=== PATIENT | female | born 1990 | race African-American/Black ===

== ENCOUNTER 2017-09-13 13:41 | Emergency (ER) | payer MEDICAID ==
[~2017-09-13] VITALS: Ht 165.1 cm; Wt 72.6 kg
[2017-09-13 14:30] VITALS: BP 106/69
[2017-09-13 14:36] LABS: APPEARANCE,URINE CLEAR; KETONES,URINE NEGATIVE (NEGATIVE); LEUKOCYTE ESTERASE ,URINE 1+ (NEGATIVE); NITRITE,URINE NEGATIVE (NEGATIVE); PH,URINE 7 (4.5-8.0); PROTEIN,URINE NEGATIVE (NEGATIVE); UROBILINOGEN,URINE NORMAL MG/DL (0.0-1.0)
[2017-09-13 14:38] LABS: BASOPHILS % (AUTO) 0.4 % (0.0-2.0); EOSINOPHILS % (AUTO) 4.1 % (0.0-3.0); LYMPHOCYTES % (AUTO) 25.4 % (20.0-45.0); MEAN CORPUSCULAR HEMOGLOBIN 29.8 PG (27.0-31.0); MEAN CORPUSCULAR HGB CONC 34.3 G/DL (32.0-36.0); MEAN CORPUSCULAR VOLUME 87 FL (80-99); MONOCYTES % (AUTO) 6.1 % (1.0-10.0); PLATELET COUNT 255 K/UL (150-450); RED BLOOD COUNT 4.02 M/UL (4.20-5.40); RED CELL DISTRIBUTION WIDTH 12.1 % (11.6-14.8); WHITE BLOOD COUNT 9.5 K/UL (4.8-10.8)
[2017-09-13 14:48] LABS: RBC,URINE 40-60 /HPF (0 - 2)
[2017-09-13 14:49] LABS: BACTERIA,URINE FEW /HPF; SQUAMOUS EPITHELIAL CELL,UR FEW /LPF (NONE/OCC)
[2017-09-13 15:12] LABS: ANION GAP 8 mmol/L (5-15); CALCIUM 9.2 MG/DL (8.5-10.1); CARBON DIOXIDE 26 MMOL/L (21-32); CHLORIDE 102 MMOL/L (98-107); CREATININE 0.6 MG/DL (0.55-1.30); GLOMERULAR FILTRATION RATE > 60 mL/min (>60); POTASSIUM 3.6 MMOL/L (3.5-5.1); SODIUM 136 MMOL/L (136-145)
[2017-09-13 15:17] LABS: ALANINE AMINOTRANSFERASE 85 U/L (12-78); ALBUMIN/GLOBULIN RATIO 0.8 (1.0-2.7); ASPARTATE AMINO TRANSFERASE 39 U/L (15-37); LIPASE 179 U/L (73-393); TOTAL PROTEIN 7.7 G/DL (6.4-8.2)
--- NOTE | 2017-09-13 15:50 | Emergency Room Report ---
History of Present Illness General Chief Complaint: Complications Source: Patient Present Illness HPI Patient presents with vaginal bleeding and suprapubic crampiness. She had some vaginal bleeding 1 month ago and had an ultrasound with her OB. There was a heart bead. The MD stated at that time she was 7 weeks. She states she is not passing clots. She has not had to use a pad. The blood was somewhat watery. She does not know her blood type. Denies fever, dysuria, discharge. Pain rated 7/10 now, crampiness, not radiating. Nothing taken. No ROSALES, URI sy, rashes, change in bowels, dizziness. Anxious about status. Allergies: Coded Allergies: No Known Allergies (Unverified , 09/13/17) Patient History Past Medical History: see triage record Social History Narrative , works as hotel dining room cashier Last Menstrual Period: 11 weeks Now: Yes : 2 Para: 1 Reviewed Nursing Documentation: PMH: Agreed, PSxH: Agreed Nursing Documentation-PMH Past Medical History: No Stated History Review of Systems All Other Systems: negative except mentioned in HPI Physical Exam Vital Signs Date Time Temp Pulse Resp B/P (MAP) Pulse Ox O2 Delivery O2 Flow Rate FiO2 09/13/17 13:35 98.2 78 18 113/78 98 Room Air Sp02 EP Interpretation: reviewed, normal General Appearance: well appearing, no apparent distress, GCS 15 Head: normocephalic Eyes: bilateral eye normal inspection, bilateral eye PERRL ENT: moist mucus membranes Neck: supple Respiratory: lungs clear, normal breath sounds Cardiovascular #1: regular rate, rhythm Cardiovascular #2: 2+ radial (R) Gastrointestinal: normal inspection, normal bowel sounds, non tender, no mass, non-distended Genitourinary: deferred - for ultrasound Musculoskeletal: back normal, gait/station normal, normal range of motion Neurologic: alert, oriented x3, grossly normal Psychiatric: anxious Skin: normal inspection, warm/dry Medical Decision Making Diagnostic Impression: Primary Impression: Threatened miscarriage Additional Impression: 8 weeks gestation of ER Course patient with vaginal bleeding and cramps. DDx; threatened miscarriage , miscarriage, UTI. As there is a history of prior IUP, ectopic excluded, however, ultrasound indicated. Also labs needed to exclude UTI, check h/h and blood type. Will treat with IV hydration and tylenol. H/H stable. Quant = [id number]. Type A+. No UTI. US with 8 week 5 day IUP with FHT. Discussed findings with patient. Pain has resolved. Patient stable for outpatient observation and treatment. Warned of risk of miscarriage. Laboratory Tests Test 09/13/17 14:00 White Blood Count 9.5 K/UL (4.8-10.8) Red Blood Count 4.02 M/UL (4.20-5.40) L Hemoglobin 12.0 G/DL (12.0-16.0) Hematocrit 34.9 % (37.0-47.0) L Mean Corpuscular Volume 87 FL (80-99) Mean Corpuscular Hemoglobin 29.8 PG (27.0-31.0) Mean Corpuscular Hemoglobin Concent 34.3 G/DL (32.0-36.0) Red Cell Distribution Width 12.1 % (11.6-14.8) Platelet Count 255 K/UL (150-450) Mean Platelet Volume 7.0 FL (6.5-10.1) Neutrophils (%) (Auto) 64.0 % (45.0-75.0) Lymphocytes (%) (Auto) 25.4 % (20.0-45.0) Monocytes (%) (Auto) 6.1 % (1.0-10.0) Eosinophils (%) (Auto) 4.1 % (0.0-3.0) H Basophils (%) (Auto) 0.4 % (0.0-2.0) Urine Color Pale yellow Urine Appearance Clear Urine pH 7 (4.5-8.0) Urine Specific [place] 1.010 (1.005-1.035) Urine Protein Negative (NEGATIVE) Urine Glucose (UA) Negative (NEGATIVE) Urine Ketones Negative (NEGATIVE) Urine Occult Blood 5+ (NEGATIVE) H Urine Nitrite Negative (NEGATIVE) Urine Bilirubin Negative (NEGATIVE) Urine Urobilinogen Normal MG/DL (0.0-1.0) Urine Leukocyte Esterase 1+ (NEGATIVE) H Urine RBC 40-60 /HPF (0 - 2) H Urine WBC 2-4 /HPF (0 - 2) Urine Squamous Epithelial Cells Few /LPF (NONE/OCC) Urine Bacteria Few /HPF (NONE) Sodium Level 136 MMOL/L (136-145) Potassium Level 3.6 MMOL/L (3.5-5.1) Chloride Level 102 MMOL/L (98-107) Carbon Dioxide Level 26 MMOL/L (21-32) Anion Gap 8 mmol/L (5-15) Blood Urea Nitrogen 6 mg/dL (7-18) L Creatinine 0.6 MG/DL (0.55-1.30) Estimate Glomerular Filtration Rate > 60 mL/min (>60) Glucose Level 88 MG/DL (74-106) Calcium Level 9.2 MG/DL (8.5-10.1) Total Bilirubin 0.3 MG/DL (0.2-1.0) Aspartate Amino Transferase (AST) 39 U/L (15-37) H Alanine Aminotransferase (ALT) 85 U/L (12-78) H Alkaline Phosphatase 74 U/L (46-116) Total Protein 7.7 G/DL (6.4-8.2) Albumin 3.4 G/DL (3.4-5.0) Globulin 4.3 g/dL Albumin/Globulin Ratio 0.8 (1.0-2.7) L Lipase 179 U/L (73-393) Human Chorionic Gonadotropin, Quant 56663 mIU/mL (1-6) H CT/MRI/US Diagnostic Results CT/MRI/US Diagnostic Results : Imaging Test Ordered: pelvic us Impression Impression: Single live intrauterine , estimated gestational age 8 weeks 5 days by crown-rump length measurement Questionable small subtle subchorionic hemorrhage Trace free cul-de-sac fluid, presumably physiologic Last Vital Signs Date Time Temp Pulse Resp B/P (MAP) Pulse Ox O2 Delivery O2 Flow Rate FiO2 09/13/17 16:20 68 18 116/90 98 Room Air 09/13/17 13:35 98.2 Status: improved Disposition: HOME, SELF-CARE Condition: Improved Scripts Acetaminophen (Tylenol) 325 Mg Tablet 650 MG ORAL Q6H Y for Prn Pain/Headache/Temp > 101, #30 TAB 0 Refills Prov: Daryl Crooks M.D. 09/13/17 Referrals: [facility],REFERRING (PCP) Daryl Crooks M.D. Sep 13, 2017 15:50
[2017-09-13] MEDS ORDERED: TYLENOL325 MG ORAL (15:52)
--- NOTE | 2017-09-13 15:55 | Diagnostic Imaging Report ---
Indication: Positive test, vaginal bleeding, pelvic pain Technique: Present on transvaginal images Comparison: None Findings: Uterus measures 10.9 cm in length by 6.5 cm AP. Within the endometrium, there is a gestational sac containing a pole. There is positive heart activity, heart rate 153 beats per minute. [place]-rump length is indicating an estimated gestational age of 8 weeks 5 days. Estimated date of delivery the 04/25/2018. There is questionably a very small subtle subchorionic hemorrhage. Left ovary measures 4.2 cm in length. Right ovary measures 4.1 cm in length. No adnexal mass. Probable left ovarian corpus luteum noted. There is trace free cul-de-sac fluid. No myometrial abnormality Impression: Single live intrauterine , estimated gestational age 8 weeks 5 days by crown-rump length measurement Questionable small subtle subchorionic hemorrhage Trace free cul-de-sac fluid, presumably physiologic
[2017-09-13 16:20] VITALS: BP 116/90
== END 2017-09-13 16:22 | disposition home or self-care (01) ==
LOC: EDBD 13:41 → EMR 14:02
DX: O20.0 Threatened abortion (principal); Z3A.08 8 weeks gestation of pregnancy
CPT/HCPCS: 36415; 76801; 76830; 80053; 81003; 83690; 84702; 85025; 86850; 86900; 86901; 96360; 99284